=== PATIENT | female | born 2000 | race Two or more races ===

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

== ENCOUNTER 2023-10-13 23:56 | Emergency (ER) | payer MEDICAID, OTHER ==
[~2023-10-13] VITALS: Ht 162.6 cm; Wt 70.0 kg
[~2023-10-13 23:56] MED LIST: FERR325T23 MT; IBUP-2030 MT
[2023-10-13 23:57] VITALS: O2SAT 98
[2023-10-14] MEDS ORDERED: ONDANSETRON HCL 4MG/2ML INJ IM STA (00:21)
[2023-10-14 04:11] VITALS: BP 117/78; PULSE 107; RESP 12; TEMP 98.4
== END 2023-10-14 04:15 | disposition home or self-care (01) ==
LOC: ER 10-14 00:02
DX: F10.129 Alcohol abuse with intoxication, unspecified (principal); Y90.0 Blood alcohol level of less than 20 mg/100 ml
CPT/HCPCS: 99283; Z7610; J2405